=== PATIENT | female | born 1980 | race Caucasian/White ===

== ENCOUNTER 2016-11-29 09:22 | Emergency (ER) | payer OTHER ==
[~2016-11-29] VITALS: Ht 172.7 cm; Wt 86.0 kg
--- NOTE | 2016-11-29 09:30 | NUR ---
Partial trauma activated. See charting.
[2016-11-29 09:56] LABS: BASOPHILS % (AUTO) 0 % (0-2); EOSINOPHILS % (AUTO) 0 % (0-4); LYMPHOCYTES # (AUTO) 1.8 X10^3; MEAN CORPUSCULAR HEMOGLOBIN 30.6 PG (26.0-34.0); MEAN CORPUSCULAR VOLUME 83 FL (80-100); MEAN PLATELET VOLUME 9.2 FL (6.0-9.5); MONOCYTES # (AUTO) 0.3 X10^3; MONOCYTES % (AUTO) 5 % (3-11); NEUTROPHILS # (AUTO) 3.2 X10^3; NEUTROPHILS % (AUTO) 60 % (51-67); PLATELET COUNT 245 10^3uL (150-450); WHITE BLOOD COUNT 5.29 10^3uL (4.0-11.0)
[2016-11-29 09:57] LABS: MEAN CORPUSCULAR HGB CONC 36.8 g/dL (31.0-37.0)
[2016-11-29 09:59] VITALS: RESP 18
[2016-11-29] MEDS ORDERED: ONDANSETRON 2 MG/ML (Z0FRAN) 2 ML VIAL IV ONE (10:15)
[2016-11-29] MEDS ORDERED: morphine INJ 2 MG/ML 1 ML SYRINGE IV PRN (10:15)
[2016-11-29] MEDS ORDERED: BACITRACIN OINTMENT 0.9 GM PACKET TOP ONE (10:20)
[2016-11-29] MEDS ORDERED: SODIUM CHLORIDE FLUSH 10 ML SYR IV PRN (10:30)
[2016-11-29] MEDS ORDERED: NS IV 500 ML 500 ML IV SCH (10:40)
[2016-11-29 10:44] LABS: ALBUMIN 4.1 g/dL (3.4-5.0); ALKALINE PHOSPHATASE 61 U/L (38-126); ANION GAP 12.9 MEQ/L (3-15); BUN/CREATININE RATIO 18 (10-20); CALCULATED IONIZED CALCIUM 4.2 mg/dL (3.8-4.6); TOTAL PROTEIN 6.9 g/dL (6.4-8.5)
[2016-11-29 11:33] LABS: BILIRUBIN,URINE Negative (Negative); CLARITY,URINE Clear; COLOR,URINE Yellow; GLUCOSE, URINE (UA) Negative (Negative); LEUKOCYTE ESTERASE ,URINE Negative (Negative); PH,URINE 5.5 (5.0 - 8.0); UROBILINOGEN,URINE 0.2 mg/dL (0.2-1.0)
[2016-11-29 11:42] LABS: AMPHETAMINE SCREEN, URINE Positive (Negative); CANNABINOID SCREEN, URINE Negative (Negative); METHAMPHETAMINE SCREEN URINE S NEGATIVE (NEGATIVE); OPIATE SCREEN URINE Positive (Negative); PROPOXYPHENE STAT NEGATIVE (NEGATIVE)
[2016-11-29 12:09] VITALS: BP 119/77
== END 2016-11-29 12:10 | disposition home or self-care (01) ==
LOC: EDUNIT# 09:22 → ED 09:24
DX: S20.221A Contusion of right back wall of thorax, initial encounter (principal); S80.11XA Contusion of right lower leg, initial encounter; W11.XXXA Fall on and from ladder, initial encounter; Y92.63 Factory as the place of occurrence of the external cause; Y99.0 Civilian activity done for income or pay
CPT/HCPCS: 36415; 72072; 80053; 80307; 80320; 81003; 84703; 85025; 96374; 96375; 99284; J2270; J2405; J7040; 99283

== ENCOUNTER → 2016-11-29 | Outpatient (CLI) | payer OTHER | LOC: EMS 09:15 | PROVIDERS: ATTEND Family Medicine | DX: G89.11 Acute pain due to trauma (principal); M54.89 Other dorsalgia; W11.XXXA Fall on and from ladder, initial encounter; Y92.69 Other specified industrial and construction area as the place of occurrence of the external cause; Y99.0 Civilian activity done for income or pay ==

== ENCOUNTER → 2016-11-30 | Outpatient (CLI) | payer OTHER | LOC: RAD 14:03 | PROVIDERS: ATTEND Nurse Practitioner Family | DX: M54.2 Cervicalgia (principal) | CPT/HCPCS: 72040 ==

== ENCOUNTER → 2016-12-21 | Outpatient (CLI) | payer OTHER | LOC: RAD 14:31 | PROVIDERS: ATTEND Nurse Practitioner Family | DX: M54.6 Pain in thoracic spine (principal); S22.038A Other fracture of third thoracic vertebra, initial encounter for closed fracture; S22.048A Other fracture of fourth thoracic vertebra, initial encounter for closed fracture; S22.058A Other fracture of T5-T6 vertebra, initial encounter for closed fracture; W11.XXXA Fall on and from ladder, initial encounter | CPT/HCPCS: 72146 ==

== ENCOUNTER → 2016-12-23 | Outpatient (CLI) | payer OTHER | LOC: RAD 10:27 | PROVIDERS: ATTEND Nurse Practitioner Family | DX: M54.5 Low back pain (principal) | CPT/HCPCS: 72110 ==

== ENCOUNTER → 2017-01-15 | Outpatient (CLI) | payer OTHER | LOC: RAD 15:48 | PROVIDERS: ATTEND Internal Medicine | DX: M54.2 Cervicalgia (principal); W11.XXXA Fall on and from ladder, initial encounter | CPT/HCPCS: 72050 ==

== ENCOUNTER → 2017-01-25 | Outpatient (CLI) | payer OTHER ==
[~2017-01-25] MED LIST: FLUO40CA12 PO; HYDR-3702 PO; LEVO75TA4 PO; PHEN-452 PO; PREN1TAB39 PO
--- NOTE | 2017-01-25 19:14 | Diagnostic Imaging Report ---
PROCEDURE: MR imaging of the brain with and without contrast. TECHNIQUE: Multiplanar, multisequence MR imaging of the brain was performed with and without contrast. INDICATION: Head injury after a fall. FINDINGS: Diffusion series does not show any evidence of an acute infarct. The FLAIR sequence does not show any pathological demyelinating changes. The ventricles are normal in size, shape, and position. There are no masses or hemorrhages. There are no extra-axial fluid collections. Postcontrast images of the brain do not show any abnormal areas of enhancement. IMPRESSION: Negative MRI brain with and without contrast. Dictated by: Dictated on workstation # [id number]
--- NOTE | 2017-01-25 19:18 | Diagnostic Imaging Report ---
PROCEDURE: MR imaging cervical spine without contrast. TECHNIQUE: Multiplanar, multisequence MR imaging of the cervical spine was performed without contrast. INDICATION: Headache after a fall Vertebral body height and alignment appear normal. Vertebral bodies have normal signal characteristics. There is a right paracentral disc herniation causing a ventral extradural defect at C5-6. There is minimal bulging of the disc at C6-7. There are no intrinsic cord abnormalities. There is no spinal stenosis. Postcontrast images do not show any abnormal areas of enhancement. 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 Minimal degenerative disc changes at C6-7. Dictated by: Dictated on workstation # [id number]
== END ==
LOC: RAD 16:12
PROVIDERS: ATTEND Internal Medicine
DX: R51 Headache (principal); Z91.81 History of falling
CPT/HCPCS: 70553; 72141; A9579

== ENCOUNTER 2017-02-12 08:15 | Outpatient (RCR) | payer OTHER ==
--- NOTE | 2017-01-13 12:40 | PT/OT/ST INITIAL EVALUATION ---
Department of Health and Human Services Form Approved Health Care Financing Administration OMB No. [id number] PLAN OF CARE/ASSESSMENT FOR OUTPATIENT REHABILITATION (Complete for Initial Claims Only) 1. PATIENT'S NAME Amanda Momin 2. ACC # [id number] 3. HICN NA 4. PROVIDER NO. [id number] 5. TYPE: PT 6. PRIOR HOSPITALIZATION NA 7. PRIMARY DX Back pain and thoracic fracture of the superior endplate. 8. SECONDARY DX NA 9. ONSET DATE 11/29/2016 10. REFERRAL DATE 12/27/2016 11. SOC. DATE 01/04/2017 12. TIME OF EVAL 13:[address] Miguel Flores 13. CHARGES/UNITS Evaluation 96521 1 [place] 71298 manual therapy 1 [place] 52869 therapeutic exercise 14. G CODES NA 15. PRIOR LEVEL OF FUNCTION; PERTINENT HISTORY (Prior therapy results, reason for referral.) S: Prior to therapy the patient did consent to today's evaluation and treatment. The patient is a 36-year-old female who fell from a ladder at work, hitting her back on 11/29/2016. The patient did see the Worker's Comp nurse and eventually underwent an MRI, which found a T3 through 5 fractures, as well as a bulging disk at T9. The patient did see Dr. Flores on 12/27/2016 and he did provide a prescription to start physical therapy services at a frequency of 2 to 3 times a week for 6 weeks. 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 She does have to lift 40 to 50 pounds occasionally and does work 36 hours to 48 hours at 12 hour shifts per week. The patient does have to do a lot of standing with her job. Current level of function: The patient was initially off of work a week after the initial injury, returned to work briefly, and is now currently off work. The patient is in contact with the Worker's Compensation nurse at [employer] to see when she is able to return to work. Therapy History: The patient has not had any physical therapy for this issue. Pain level: The pain is reported as 6 to 7/10 in the mid back and the lower portion of the thoracic spine. She does note increased popping in her cervical spine since the injury, as well as variable amounts of pain dependent upon movement. Aggravating factors: Include bending or raising her arms overhead. Relieving factors: Include muscle relaxers, which she takes as needed. Diagnostic testing: As reported, the patient did have an MRI, which showed a T3 through T5 fracture of the superior endplate, as well as a bulging disk at T8 and T9. Current medications: The patient is currently taking muscle relaxers as needed for pain, but has not had to take those on a regular basis. She also takes Synthroid. Personal health rating: Good. Activity level: Not reported on this sheet. Patient's Goal: The patient's goal is to be able to return to work and be able to have decreased pain in her mid back. 16. INITIAL ASSESSMENT/SAFETY PRECAUTIONS/MEDICAL COMPLICATIONS (Level of function at start of care. Be specific, use objective measures, list problems.) O: APPEARANCE AND OBSERVATION: Observation of the patient's posture reveals mild forward shoulder positioning and forward head positioning. PALPATION: Tenderness to palpation of the bilateral thoracic paraspinals from T1 through T12 in the parascapular musculature greatest on the right side. SPECIAL TESTS: Negative slump test for increased nerve tension throughout the spine. RANGE OF MOTION/FLEXIBILITY: The patient has no range of motion limitations with shoulder flexion, abduction, internal and external rotation. She does demonstrate mild scapular winging and medial tilting of the scapulae with shoulder internal rotation bilaterally. Right cervical rotation is limited by 25% in comparison to the left. Cervical flexion and extension are functional, but cause increase tension and pain into the thoracic spine, greatest at the T9 level per patient report. STRENGTH: Right shoulder flexibility 3+/5, left 3+/5. Right shoulder abduction 3+/5, left 3+/5. Shoulder internal and external rotation are 4/5 bilaterally. Hip flexion 5/5 bilaterally. Knee flexion 4/5, knee extension 5/5, and ankle dorsiflexion 5/5. TODAY'S TREATMENT: Today's treatment consisted of educating the patient on the findings of the evaluation and recommended treatment plan. The physical therapist did initiate manual therapy to the lateral thoracic paraspinals and bilateral upper trapezii to work to decrease muscle tightness and guarding and then applied Kinesio tape to help maintain mobility gained through manual therapy. The patient was also educated on light cervical active range of motion exercises and stretching with instruction to not force these movements into pain. 17. INITIAL POC: (Specify procedures, modalities, short and intermission coordinator goals) A: The patient presents to physical therapy after falling off a ladder at work resulting in significant thoracic spine pain, impaired mobility and strength in the upper extremities and thoracic spine region. The patient does have a good outcome in physical therapy due to her healthy prior level of function and motivation for returning to work. OUTCOME ASSESSMENT: The patient does score a 7/50 on the Modified Oswestry pain index, which she answered in relation to her mid back. INFORMED CONSENT: The diagnosis, prognosis, treatment plan, risks and expected outcomes were discussed with this patient and she is agreeable to today's established plan of care. SHORT TERM GOALS X3 WEEKS: 1. The patient will report independence and compliance with her home exercise program to decrease muscle tightness and begin improving strength. 2. The patient will report a minimum of a 50% decrease in pain frequency and intensity in the mid back with all functional movements of the upper extremities. 3. The patient will regain bilateral shoulder flexion and abduction strength to be a minimum of 4/5 and internal and external rotation strength to improve to 5/5. DIRECTOR OF SPECIAL EDUCATION GOALS X6 WEEKS: 1. The patient will demonstrate the ability to maintain proper scapular stabilization and lifting mechanics of up to 40 pounds if within recommendation of referring physician. 2. The patient will be able to restart work with pain no greater than a 3 to 4/10 in the mid back. 3. The patient will regain full cervical range of motion and rotation in order to demonstrate decreased tightness and tension throughout the muscles. P: Plan to see this patient 3 times a week for 6 weeks in order to address thoracic spine pain, impaired upper extremity strength, decreased mobility in the cervical spine, as well as significant muscle tightness. Treatment will include modalities as needed with caution around the thoracic spine region from T3 to T5 due to the presence of fractures. Manual therapy will be used emphasis on improving muscle flexibility. No spinal mobilizations will be utilized at this time secondary to the presence of fractures. Therapeutic exercise with emphasis on regaining pain free range of motion with progressive strengthening and postural reeducation. Functional training will be included as the patient tolerates to assist her in being able to return to work. The patient was provided a home exercise program and this will be progressed as needed. Thank you for the referral of this patient. 18. FREQUENCY 3 times a week 19. DURATION 6 weeks 20. FUNCTIONAL LEVEL (End of claim period) 21. PHYSICIAN SIGNATURE ? ON FILE OR ENTER HERE: 22. DATE: I certify the need for these services furnished under this plan of care and if for partial hospitalization. 23. CERTIFICATION FROM THROUGH FORM [id number]
== END 2017-02-26 12:00 | disposition home or self-care (01) ==
LOC: PT 08:15
PROVIDERS: ATTEND Neurological Surgery
DX: M54.6 Pain in thoracic spine (principal); S22.039D Unspecified fracture of third thoracic vertebra, subsequent encounter for fracture with routine healing; S22.049D Unspecified fracture of fourth thoracic vertebra, subsequent encounter for fracture with routine healing; S22.059D Unspecified fracture of T5-T6 vertebra, subsequent encounter for fracture with routine healing; W11.XXXD Fall on and from ladder, subsequent encounter
CPT/HCPCS: 97110; 97140; 97161; G0283; 97014

== ENCOUNTER → 2017-03-03 | Outpatient (CLI) | payer OTHER ==
[~2017-03-03] MED LIST changes: +ROPIVACAINE 1% 10 MG/ML (NAROPIN) 10 ML AMPUL ONE; +methylPREDNISolone 80 MG/ML (DEPO MEDROL) VIAL IM ONE
--- NOTE | 2017-03-03 10:48 | PAIN MANAGEMENT ---
Date of note: 03/03/2017 Procedure: 1. Cervical epidural steroid injection. 2. Right-sided thoracic trigger point injection Total fluoroscopy exposure time: 48 seconds This is a 36-year-old patient of Dr. Flores in [place], [place]. The patient presents post accident with neck radiculopathy emanating from C5-C6 and also with upper thoracic pain from fracture she sustained of her spine and possibly rib. Informed consent was achieved for cervical epidural steroid injection under fluoroscopy and trigger point injection. She was allowed to remain in sitting position and the maximal trigger point in the thoracic region of the rhomboid approximately at the T3-T4 region was palpated and injected with ropivacaine 0.5% and Depo-Medrol 40 mg. She was then placed in the left lateral decubitus position. Orders for procedure verified. Patient denies any bleeding tendencies. After informed consent obtained, the patient was positioned for the cervical epidural steroid injection with fluoroscopy was provided at C5-C6. The area was prepped and draped using aseptic technique. The skin and overlying tissues were localized with 3 mL of 1% Preservative-Free lidocaine using a 25-gauge needle. A 20-gauge Tuohy needle was advanced, using "loss of resistance" technique, to the epidural space. No blood, cerebral spinal fluid, pain, or paresthesia noted on entry of the epidural space. A 1 mL solution of Depo-Medrol 80 mg was injected slowly without mass volume effect. The patient was placed in supine position 15 minutes prior to being released with proper leg strength and vitals. Pre- and post procedure vital signs stable with no sensory or motor deficit noted. Instruction on followup contact and care provided to the patient.
== END ==
LOC: PMC 08:09
PROVIDERS: ATTEND Neurological Surgery
DX: M54.12 Radiculopathy, cervical region (principal); M54.6 Pain in thoracic spine
CPT/HCPCS: 20552; 62321; J1040; J2795

== ENCOUNTER → 2017-03-23 | Outpatient (CLI) | payer OTHER ==
[~2017-03-23] MED LIST changes: -ROPIVACAINE 1% 10 MG/ML (NAROPIN) 10 ML AMPUL ONE
--- NOTE | 2017-03-23 14:45 | PAIN MANAGEMENT ---
Date of note: 03/23/2017 PRCEDURE: Cervical epidural injection at C5-C6 under fluoroscopy. TOTAL FLUOROSCOPIC TIME: 18 seconds. This is a 36-year-old patient of Dr. Flores. This patient presents with a long-standing history of cervical pain and some mild fascial pain. She is having some difficulty with whiplash type syndrome after a fall. She had a previous cervical epidural steroid injection by tn approximately 2-3 weeks ago, she did quite well for a few days and now her pain has started to return. Informed consent was achieved. She is placed in a left lateral decubitus position under fluoroscopy guidance. Orders for procedure verified. Patient denies any bleeding tendencies. After informed consent obtained, the patient was positioned for the cervical epidural steroid injection. The area was prepped and draped using aseptic technique. The skin and overlying tissues were localized with 3 mL of 1% Preservative-Free lidocaine using a 25-gauge needle. A 20-gauge Tuohy needle was advanced, using "loss of resistance" technique, to the epidural space. No blood, cerebral spinal fluid, pain, or paresthesia noted on entry of the epidural space. A 1 mL solution of Depo-Medrol 80 mg was injected slowly without mass volume effect. The patient was placed in supine position 15 minutes prior to being released with proper leg strength and vitals. Pre- and post procedure vital signs stable with no sensory or motor deficit noted. Instruction on followup contact and care provided to the patient.
== END ==
LOC: PMC 11:12
PROVIDERS: ATTEND Family Medicine
PROC: 3E0R33Z Introduction of Anti-inflammatory into Spinal Canal, Percutaneous Approach (ICD-10-PCS; principal; 2017-03-23)
PROC: B01BYZZ Fluoroscopy of Spinal Cord using Other Contrast (ICD-10-PCS; 2017-03-23)
DX: M50.222 Other cervical disc displacement at C5-C6 level (principal); M54.6 Pain in thoracic spine
CPT/HCPCS: 62321; J1040